=== PATIENT | male | born 1960 | race Caucasian/White ===

== ENCOUNTER 2019-10-17 03:04 | Inpatient (IN) ==
[2019-10-17] MEDS ORDERED: PNEUMOCOCCAL VACCINE (23 VALENT) 0.5 ML VIAL IM ONE (04:53)
[2019-10-17] MEDS ORDERED: INFLUENZA VIRUS VACCINE 0.5 ML SYRINGE IM ONE (04:53)
[2019-10-17] MEDS ORDERED: PROMETHAZINE 25 MG TABLET PO PRN (05:21)
[2019-10-17] MEDS ORDERED: ALBUTEROL 2.5 MG/3 ML NEB RESP TX PRN (05:21)
[2019-10-17] MEDS ORDERED: hydrALAZINE 20 MG/1 ML VIAL IV PRN (05:21)
[2019-10-17] MEDS: PANTOPRAZOLE 40 MG VIAL IV SCH (05:51)
[2019-10-17] MEDS: MORPHINE 4 MG/1 ML VIAL IV PRN ×4 (05:52→21:06)
[2019-10-17] MEDS: SODIUM CHLORIDE 0.9% 1,000 ML IV SCH ×3 (05:54→23:11)
[2019-10-17] MEDS ORDERED: MAGNESIUM SULF RIDER 2 GM in PREMIX 1 EACH IV PRN (05:58)
[2019-10-17] MEDS ORDERED: DEXTROSE 50% 25 GM/50 ML SYRINGE IV PRN (05:58)
[2019-10-17] MEDS ORDERED: GLUCAGON 1 MG VIAL IM PRN (05:58)
[2019-10-17] MEDS ORDERED: MAGNESIUM SULF RIDER 4 GM in PREMIX 1 EACH IV PRN (05:58)
[2019-10-17] MEDS ORDERED: SODIUM CHLORIDE 0.9% 1,000 ML IV ONE (06:15)
[2019-10-17] MEDS: INSULIN LISPRO 100 UNIT/ML SUBCUT SCH ×3 (06:31→17:34)
[2019-10-17] MEDS ORDERED: ALBUTEROL/IPRATROPIUM 3 ML NEB RESP TX SCH (07:00)
[2019-10-17 08:51] LABS: Albumin 3.3 G/DL (3.4-5.0); Bilirubin,Total 0.7 MG/DL (0.2-1.0); Calcium 8.2 MG/DL (8.5-10.1); Osmolality,Calculated 274.8 MOS/KG (273-304); Risk Ratio 2.82; Thyroid Stimulating Hormone 0.608 uIU/ml (0.358-3.74); Total Protein 7.1 G/DL (6.4-8.3); VLDL CHOLESTEROL 15.8 MG/DL
[2019-10-17] MEDS: CLINDAMYCIN INJ 600 MG in PREMIX 1 EACH IV SCH ×4 (08:53→21:07)
[2019-10-17 10:27] LABS: Basophils % 0.1 % (0.0-0.8); Hematocrit 39.8 VOL% (42.0-52.0); Hemoglobin 14.2 GM/DL (14.0-18.0); Immature Granulocytes % 0.6 %; Lymphocytes # 1.2 10*3/uL (1.4-4.0); Lymphocytes % 6.5 % (21.2-54.2); Mean Corpuscular HGB Conc 35.7 GM/DL (32-36); Mean Corpuscular Volume 83.6 FL (87-102); Mean Platelet Volume 11.7 FL (9.6-12.0); Monocytes % 10.7 % (1.7-12.7); Neutrophils % 82.1 % (38.7-73.9); Platelet Count 355 T/CUMM (130-400); Red Blood Count 4.76 MC/CUMM (3.8-5.5); Red Cell Distribution Width 14.7 % (9.3-17.3); White Blood Count 17.8 T/CUMM (4-12)
[2019-10-17 10:36] LABS: PT Patient Result 10.7 SECS (9.6-12.2)
[2019-10-17] MEDS: ALBUTEROL/IPRATROPIUM 3 ML NEB RESP TX SCH ×3 (11:51→20:18)
[2019-10-17 22:40] LABS: Apearance,Urine CLEAR (Clear); Bilirubin,Urine Negative (Negative); Blood, Urine Negative (Negative); Glucose,Urine (UA) Negative (Negative); Ketones,Urine 20 mg/dL (Negative); Nitrite,Urine Negative (Negative); Protein,Urine Negative; RBC,Urine 1 /HPF (0-4); Urine Color Yellow (Yellow); Urine Specific Gravity > 1.060 (1.001-1.035); Urine Urobilinogen < 2.0 EU/DL (0.2-1.0); WBC,Urine 2 /HPF (0-6)
[2019-10-18] MEDS: ALBUTEROL/IPRATROPIUM 3 ML NEB RESP TX SCH ×7 (00:12→23:53)
[2019-10-18] MEDS ORDERED: diphenhydrAMINE 50 MG/1 ML VIAL IV ONE (00:27)
[2019-10-18] MEDS: CLINDAMYCIN INJ 600 MG in PREMIX 1 EACH IV SCH ×4 (03:49→20:35)
[2019-10-18] MEDS: MORPHINE 4 MG/1 ML VIAL IV PRN ×5 (03:49→20:40)
[2019-10-18 04:32] LABS: Basophils % 0.2 % (0.0-0.8); Hematocrit 37.2 VOL% (42.0-52.0); Hemoglobin 13.3 GM/DL (14.0-18.0); Immature Granulocytes % 0.3 %; Immature Granulocytes Absolute 0.05 #; Lymphocytes # 1.5 10*3/uL (1.4-4.0); Lymphocytes % 9.5 % (21.2-54.2); Mean Corpuscular HGB Conc 35.8 GM/DL (32-36); Mean Corpuscular Volume 84.2 FL (87-102); Mean Platelet Volume 11.1 FL (9.6-12.0); Monocytes % 9.6 % (1.7-12.7); Neutrophils % 80.4 % (38.7-73.9); Platelet Count 293 T/CUMM (130-400); Red Blood Count 4.42 MC/CUMM (3.8-5.5); Red Cell Distribution Width 14.9 % (9.3-17.3); White Blood Count 15.3 T/CUMM (4-12)
[2019-10-18 04:52] LABS: Calcium 8.7 MG/DL (8.5-10.1); Osmolality,Calculated 274.7 MOS/KG (273-304)
[2019-10-18] MEDS: INSULIN LISPRO 100 UNIT/ML SUBCUT SCH ×4 (06:11→19:17)
[2019-10-18] MEDS: PANTOPRAZOLE 40 MG VIAL IV SCH (06:18)
[2019-10-18] MEDS: POTASSIUM CHLORIDE RIDER 10 MEQ in PREMIX 1 EACH IV PRN ×3 (06:40→08:39)
[2019-10-18] MEDS: SODIUM CHLORIDE 0.9% 1,000 ML IV SCH (07:00)
[2019-10-18] MEDS: SODIUM CHLOR 0.45% KCL 20 MEQ 20 MEQ/1,000 ML BAG IV SCH ×2 (11:56→23:00)
[2019-10-18] MEDS: FLUCONAZOLE INJ 400 MG in PREMIX 1 EACH IV SCH (11:57)
[2019-10-18] MEDS ORDERED: diphenhydrAMINE CAP 25 MG CAPSULE PO PRN (22:27)
[2019-10-18] MEDS: diphenhydrAMINE 25 MG/10 ML UDCUP PO PRN (23:15)
[2019-10-19] MEDS: INSULIN LISPRO 100 UNIT/ML SUBCUT SCH ×4 (00:28→18:04)
[2019-10-19] MEDS: MORPHINE 4 MG/1 ML VIAL IV PRN ×5 (01:50→22:27)
[2019-10-19] MEDS: CLINDAMYCIN INJ 600 MG in PREMIX 1 EACH IV SCH ×2 (02:05→11:15)
[2019-10-19] MEDS: ALBUTEROL/IPRATROPIUM 3 ML NEB RESP TX SCH ×6 (03:47→23:56)
[2019-10-19] MEDS: PANTOPRAZOLE 40 MG VIAL IV SCH (04:45)
[2019-10-19 05:32] LABS: Basophils % 0.2 % (0.0-0.8); Hematocrit 30.6 VOL% (42.0-52.0); Hemoglobin 10.6 GM/DL (14.0-18.0); Immature Granulocytes % 0.6 %; Immature Granulocytes Absolute 0.07 #; Lymphocytes # 1.4 10*3/uL (1.4-4.0); Lymphocytes % 11.4 % (21.2-54.2); Mean Corpuscular HGB Conc 34.6 GM/DL (32-36); Mean Platelet Volume 10.9 FL (9.6-12.0); Neutrophils % 77.8 % (38.7-73.9); Platelet Count 216 T/CUMM (130-400); Red Blood Count 3.56 MC/CUMM (3.8-5.5); Red Cell Distribution Width 14.9 % (9.3-17.3); White Blood Count 12.5 T/CUMM (4-12)
[2019-10-19 05:57] LABS: Calcium 8.1 MG/DL (8.5-10.1); Osmolality,Calculated 277.4 MOS/KG (273-304)
[2019-10-19] MEDS ORDERED: LACTATED RINGERS 1,000 ML IV SCH (06:30)
[2019-10-19] MEDS: SODIUM CHLOR 0.45% KCL 20 MEQ 20 MEQ/1,000 ML BAG IV SCH ×3 (07:24→23:00)
[2019-10-19] MEDS: POTASSIUM CHLORIDE RIDER 10 MEQ in PREMIX 1 EACH IV PRN ×4 (07:25→17:43)
[2019-10-19] MEDS ORDERED: LIDOCAINE 2% 5 ML VIAL ONE (09:00)
[2019-10-19] MEDS ORDERED: propofoL 200 MG/20 ML VIAL IV ONE (09:00)
[2019-10-19] MEDS ORDERED: ETOMIDATE 20 MG/10 ML VIAL IV ONE (09:00)
[2019-10-19] MEDS: FLUCONAZOLE INJ 400 MG in PREMIX 1 EACH IV SCH (11:51)
[2019-10-19] MEDS: cefTRIAXone 1,000 MG in SYRINGE 1 EACH IV SCH (11:55)
[2019-10-19] MEDS ORDERED: GLUCAGON 1 MG VIAL IM PRN (12:38)
[2019-10-19] MEDS ORDERED: DEXTROSE 50% 25 GM/50 ML VIAL IV PRN (12:38)
[2019-10-19] MEDS: AZITHROMYCIN 250 MG TABLET PO SCH (12:40)
[2019-10-19] MEDS ORDERED: ACETAMINOPHEN 650 MG SUPP RECTAL PRN (21:26)
[2019-10-19] MEDS: diphenhydrAMINE 25 MG/10 ML UDCUP PO PRN (21:36)
[2019-10-19] MEDS: metroNIDAZOLE INJ 500 MG in PREMIX 1 EACH IV SCH (22:32)
[2019-10-20] MEDS: INSULIN LISPRO 100 UNIT/ML SUBCUT SCH ×4 (00:29→18:04)
[2019-10-20] MEDS: ALBUTEROL/IPRATROPIUM 3 ML NEB RESP TX SCH ×5 (03:04→18:05)
[2019-10-20] MEDS: MORPHINE 4 MG/1 ML VIAL IV PRN ×4 (04:33→20:21)
[2019-10-20 04:43] LABS: Basophils % 0.3 % (0.0-0.8); Eosinophils % 0.2 % (0.00-10.9); Hematocrit 29.8 VOL% (42.0-52.0); Hemoglobin 10.4 GM/DL (14.0-18.0); Immature Granulocytes % 0.3 %; Immature Granulocytes Absolute 0.04 #; Lymphocytes # 1.9 10*3/uL (1.4-4.0); Lymphocytes % 15.8 % (21.2-54.2); Mean Corpuscular HGB Conc 34.9 GM/DL (32-36); Mean Corpuscular Volume 83.9 FL (87-102); Mean Platelet Volume 10.9 FL (9.6-12.0); Monocytes % 11.5 % (1.7-12.7); Neutrophils % 71.9 % (38.7-73.9); Platelet Count 206 T/CUMM (130-400); Red Blood Count 3.55 MC/CUMM (3.8-5.5); Red Cell Distribution Width 14.7 % (9.3-17.3); White Blood Count 11.7 T/CUMM (4-12)
[2019-10-20 05:22] LABS: Calcium 8.1 MG/DL (8.5-10.1); Osmolality,Calculated 267.1 MOS/KG (273-304)
[2019-10-20] MEDS: metroNIDAZOLE INJ 500 MG in PREMIX 1 EACH IV SCH (07:55)
[2019-10-20] MEDS ORDERED: metroNIDAZOLE 500 MG TABLET PO SCH (09:00)
[2019-10-20] MEDS: cefTRIAXone 1,000 MG in SYRINGE 1 EACH IV SCH (09:08)
[2019-10-20] MEDS: SODIUM CHLOR 0.45% KCL 20 MEQ 20 MEQ/1,000 ML BAG IV SCH ×3 (09:08→17:13)
[2019-10-20] MEDS: AZITHROMYCIN 250 MG TABLET PO SCH (09:08)
[2019-10-20] MEDS: ONDANSETRON 4 MG/2 ML VIAL IV PRN (12:59)
[2019-10-20] MEDS: diphenhydrAMINE 25 MG/10 ML UDCUP PO PRN (22:05)
[2019-10-21] MEDS: ALBUTEROL/IPRATROPIUM 3 ML NEB RESP TX SCH ×6 (00:24→20:59)
[2019-10-21] MEDS: INSULIN LISPRO 100 UNIT/ML SUBCUT SCH ×4 (00:31→18:15)
[2019-10-21] MEDS: SODIUM CHLOR 0.45% KCL 20 MEQ 20 MEQ/1,000 ML BAG IV SCH ×4 (01:10→21:39)
[2019-10-21] MEDS: MORPHINE 4 MG/1 ML VIAL IV PRN ×5 (04:41→21:57)
[2019-10-21] MEDS: cefTRIAXone 1,000 MG in SYRINGE 1 EACH IV SCH (08:40)
[2019-10-21] MEDS: AZITHROMYCIN 250 MG TABLET PO SCH (11:59)
[2019-10-21] MEDS: diphenhydrAMINE 25 MG/10 ML UDCUP PO PRN (22:00)
[2019-10-22] MEDS: ALBUTEROL/IPRATROPIUM 3 ML NEB RESP TX SCH ×7 (00:30→23:56)
[2019-10-22] MEDS: INSULIN LISPRO 100 UNIT/ML SUBCUT SCH ×4 (02:41→18:33)
[2019-10-22] MEDS: MORPHINE 4 MG/1 ML VIAL IV PRN ×5 (03:00→22:29)
[2019-10-22] MEDS: SODIUM CHLOR 0.45% KCL 20 MEQ 20 MEQ/1,000 ML BAG IV SCH ×4 (05:25→23:45)
[2019-10-22 07:08] LABS: Calcium 8.5 MG/DL (8.5-10.1)
[2019-10-22] MEDS: cefTRIAXone 1,000 MG in SYRINGE 1 EACH IV SCH (08:42)
[2019-10-22] MEDS: PANTOPRAZOLE 40 MG TABLET PO SCH (13:22)
[2019-10-22] MEDS: AZITHROMYCIN 250 MG TABLET PO SCH (13:22)
[2019-10-22] MEDS: LORazepam 2 MG/1 ML VIAL IV PRN (19:53)
[2019-10-23] MEDS: INSULIN LISPRO 100 UNIT/ML SUBCUT SCH ×2 (01:15→06:11)
[2019-10-23] MEDS: LORazepam 2 MG/1 ML VIAL IV PRN ×3 (02:17→21:14)
[2019-10-23] MEDS: ALBUTEROL/IPRATROPIUM 3 ML NEB RESP TX SCH ×6 (03:28→22:38)
[2019-10-23] MEDS: PANTOPRAZOLE 40 MG TABLET PO SCH (07:01)
[2019-10-23] MEDS: AZITHROMYCIN 250 MG TABLET PO SCH (08:40)
[2019-10-23] MEDS: cefTRIAXone 1,000 MG in SYRINGE 1 EACH IV SCH (08:40)
[2019-10-23] MEDS: LACTATED RINGERS 1,000 ML IV SCH ×2 (09:30→11:02)
[2019-10-23] MEDS ORDERED: LIDOCAINE 2% 5 ML VIAL ONE (10:00)
[2019-10-23] MEDS ORDERED: PHENYLEPHRINE 1 MG/10 ML SYRINGE IV ONE (10:00)
[2019-10-23] MEDS ORDERED: propofoL 200 MG/20 ML VIAL IV ONE (10:00)
[2019-10-23] MEDS: MORPHINE 4 MG/1 ML VIAL IV PRN ×3 (13:06→23:20)
[2019-10-23] MEDS: SODIUM CHLOR 0.45% KCL 20 MEQ 20 MEQ/1,000 ML BAG IV SCH ×2 (13:10→19:27)
[2019-10-24] MEDS: ALBUTEROL/IPRATROPIUM 3 ML NEB RESP TX SCH ×2 (02:29→08:56)
[2019-10-24] MEDS: LORazepam 2 MG/1 ML VIAL IV PRN ×3 (03:19→21:45)
[2019-10-24] MEDS: SODIUM CHLOR 0.45% KCL 20 MEQ 20 MEQ/1,000 ML BAG IV SCH ×2 (03:20→07:36)
[2019-10-24] MEDS: MORPHINE 4 MG/1 ML VIAL IV PRN ×4 (05:34→18:31)
[2019-10-24 06:59] LABS: Calcium 9.4 MG/DL (8.5-10.1); Osmolality,Calculated 262.5 MOS/KG (273-304)
[2019-10-24] MEDS: SODIUM CHLOR 0.9% KCL 20 MEQ 20 MEQ/1,000 ML BAG IV SCH ×2 (09:28→18:44)
[2019-10-24] MEDS: PANTOPRAZOLE 40 MG TABLET PO SCH (09:29)
[2019-10-24] MEDS: cefTRIAXone 1,000 MG in SYRINGE 1 EACH IV SCH (09:29)
[2019-10-24] MEDS: ONDANSETRON 4 MG/2 ML VIAL IV PRN (14:21)
[2019-10-25] MEDS: MORPHINE 4 MG/1 ML VIAL IV PRN ×5 (01:32→23:59)
[2019-10-25] MEDS: SODIUM CHLOR 0.9% KCL 20 MEQ 20 MEQ/1,000 ML BAG IV SCH ×3 (04:05→20:45)
[2019-10-25] MEDS: PANTOPRAZOLE 40 MG TABLET PO SCH (06:00)
[2019-10-25] MEDS: cefTRIAXone 1,000 MG in SYRINGE 1 EACH IV SCH (10:05)
[2019-10-25] MEDS: LORazepam 2 MG/1 ML VIAL IV PRN (21:37)
[2019-10-26] MEDS: LORazepam 2 MG/1 ML VIAL IV PRN ×2 (04:50→21:50)
[2019-10-26] MEDS: MORPHINE 4 MG/1 ML VIAL IV PRN ×5 (04:50→22:46)
[2019-10-26] MEDS: PANTOPRAZOLE 40 MG TABLET PO SCH (05:34)
[2019-10-26] MEDS: SODIUM CHLOR 0.9% KCL 20 MEQ 20 MEQ/1,000 ML BAG IV SCH ×4 (06:20→23:42)
[2019-10-26 07:35] LABS: Calcium 8.3 MG/DL (8.5-10.1); Osmolality,Calculated 265.2 MOS/KG (273-304)
[2019-10-26] MEDS: cefTRIAXone 1,000 MG in SYRINGE 1 EACH IV SCH (09:32)
[2019-10-27] MEDS: MORPHINE 4 MG/1 ML VIAL IV PRN ×5 (05:21→22:22)
[2019-10-27] MEDS: PANTOPRAZOLE 40 MG TABLET PO SCH (05:58)
[2019-10-27 06:22] LABS: Basophils # 0.1 10*3/uL (0.0-0.2); Basophils % 1.1 % (0.0-0.8); Eosinophils # 0.1 10*3/uL (0.0-0.87); Eosinophils % 0.9 % (0.00-10.9); Hematocrit 33.2 VOL% (42.0-52.0); Hemoglobin 11.6 GM/DL (14.0-18.0); Immature Granulocytes % 0.2 %; Immature Granulocytes Absolute 0.01 #; Lymphocytes # 2.4 10*3/uL (1.4-4.0); Lymphocytes % 36.5 % (21.2-54.2); Mean Corpuscular HGB Conc 34.9 GM/DL (32-36); Mean Corpuscular Volume 84.3 FL (87-102); Mean Platelet Volume 10.4 FL (9.6-12.0); Monocytes % 8.6 % (1.7-12.7); Neutrophils % 52.7 % (38.7-73.9); Platelet Count 384 T/CUMM (130-400); Red Blood Count 3.94 MC/CUMM (3.8-5.5); Red Cell Distribution Width 14.3 % (9.3-17.3); White Blood Count 6.5 T/CUMM (4-12)
[2019-10-27 06:37] LABS: Calcium 8.1 MG/DL (8.5-10.1); Osmolality,Calculated 272.5 MOS/KG (273-304)
[2019-10-27] MEDS: SODIUM CHLOR 0.9% KCL 20 MEQ 20 MEQ/1,000 ML BAG IV SCH ×3 (06:44→22:25)
[2019-10-27] MEDS: METOCLOPRAMIDE 10 MG/2 ML VIAL IV SCH ×2 (14:12→20:31)
[2019-10-27] MEDS: diphenhydrAMINE 25 MG/10 ML UDCUP PO PRN (20:31)
[2019-10-28] MEDS: METOCLOPRAMIDE 10 MG/2 ML VIAL IV SCH ×4 (03:23→20:45)
[2019-10-28] MEDS: MORPHINE 4 MG/1 ML VIAL IV PRN (05:04)
[2019-10-28] MEDS: PANTOPRAZOLE 40 MG TABLET PO SCH (06:20)
[2019-10-28] MEDS: SODIUM CHLOR 0.9% KCL 20 MEQ 20 MEQ/1,000 ML BAG IV SCH ×3 (06:21→22:21)
[2019-10-28] MEDS: diphenhydrAMINE 25 MG/10 ML UDCUP PO PRN ×2 (06:36→20:45)
[2019-10-28 08:05] LABS: Basophils # 0.1 10*3/uL (0.0-0.2); Basophils % 0.9 % (0.0-0.8); Eosinophils # 0.1 10*3/uL (0.0-0.87); Eosinophils % 1.2 % (0.00-10.9); Hematocrit 36.3 VOL% (42.0-52.0); Hemoglobin 12.3 GM/DL (14.0-18.0); Immature Granulocytes % 0.4 %; Immature Granulocytes Absolute 0.03 #; Lymphocytes # 2.3 10*3/uL (1.4-4.0); Lymphocytes % 32.8 % (21.2-54.2); Mean Corpuscular HGB Conc 33.9 GM/DL (32-36); Mean Corpuscular Volume 87.7 FL (87-102); Mean Platelet Volume 10.4 FL (9.6-12.0); Monocytes % 6.5 % (1.7-12.7); Neutrophils % 58.2 % (38.7-73.9); Platelet Count 398 T/CUMM (130-400); Red Blood Count 4.14 MC/CUMM (3.8-5.5); Red Cell Distribution Width 14.5 % (9.3-17.3); White Blood Count 6.9 T/CUMM (4-12)
[2019-10-28 08:22] LABS: Calcium 8.5 MG/DL (8.5-10.1); Osmolality,Calculated 274.4 MOS/KG (273-304)
[2019-10-28] MEDS: ACETAMINOPHEN 325 MG TABLET PO PRN (09:46)
[2019-10-29] MEDS: METOCLOPRAMIDE 10 MG/2 ML VIAL IV SCH ×3 (02:47→16:18)
[2019-10-29] MEDS: ACETAMINOPHEN 325 MG TABLET PO PRN (04:51)
[2019-10-29] MEDS: PANTOPRAZOLE 40 MG TABLET PO SCH (06:10)
[2019-10-29] MEDS: SODIUM CHLOR 0.9% KCL 20 MEQ 20 MEQ/1,000 ML BAG IV SCH (06:10)
[2019-10-29 06:40] LABS: Basophils # 0.1 10*3/uL (0.0-0.2); Eosinophils # 0.1 10*3/uL (0.0-0.87); Eosinophils % 1.3 % (0.00-10.9); Hematocrit 33.9 VOL% (42.0-52.0); Hemoglobin 11.3 GM/DL (14.0-18.0); Immature Granulocytes % 0.3 %; Immature Granulocytes Absolute 0.02 #; Lymphocytes # 2.4 10*3/uL (1.4-4.0); Mean Corpuscular HGB Conc 33.3 GM/DL (32-36); Mean Corpuscular Volume 87.8 FL (87-102); Mean Platelet Volume 10.4 FL (9.6-12.0); Monocytes % 5.8 % (1.7-12.7); Neutrophils % 56.6 % (38.7-73.9); Platelet Count 395 T/CUMM (130-400); Red Blood Count 3.86 MC/CUMM (3.8-5.5); Red Cell Distribution Width 14.5 % (9.3-17.3); White Blood Count 6.8 T/CUMM (4-12)
[2019-10-29 07:05] LABS: Calcium 8.4 MG/DL (8.5-10.1); Osmolality,Calculated 273.5 MOS/KG (273-304)
[2019-10-29 13:07] VITALS: BP 136/73
== END 2019-10-29 15:46 | disposition home or self-care (01) | DRG 178 ==
LOC: N.CC 04:11 → SUATTDRO 04:11 → N.2E 10-18 10:57
PROVIDERS: ADMIT Internal Medicine; ATTEND Family Medicine

== ENCOUNTER 2019-12-09 11:37 | Inpatient (IN) ==
[2019-12-09] MEDS ORDERED: ACETAMINOPHEN 325 MG TABLET PO PRN (13:54)
[2019-12-09] MEDS ORDERED: AZITHROMYCIN INJ 500 MG in SODIUM CHLORIDE 0.9% 250 ML IV ONE (13:56)
[2019-12-09] MEDS ORDERED: PANTOPRAZOLE 40 MG VIAL IV SCH (14:00)
[2019-12-09 14:17] LABS: ABG Base Excess 4.8 MMOL/L (-2.5-2.5); ABG HCO3 28.7 MMOL/L (20-26); ABG Oxygen Saturation 98.5 % (95-100); ABG PH 7.268 (7.35-7.45); ABG TCO2 31.1 MMOL/L (23-27)
[2019-12-09 14:24] LABS: ABG PCO2 77.2 MM HG (35-48)
[2019-12-09] MEDS ORDERED: AZITHROMYCIN 250 MG TABLET PO ONE (14:30)
[2019-12-09] MEDS ORDERED: MIDAZOLAM 100 MG in SODIUM CHLORIDE 0.9% 80 ML IV PRN (14:30)
[2019-12-09] MEDS ORDERED: GLUCAGON 1 MG VIAL IM PRN (15:10)
[2019-12-09] MEDS ORDERED: DEXTROSE 10% 250 ML BAG IV PRN (15:10)
[2019-12-09 15:18] LABS: Ferritin 41.2 ng/ml (26-388)
[2019-12-09] MEDS: cefTRIAXone 1,000 MG in SYRINGE 1 EACH IV SCH (16:47)
[2019-12-09] MEDS: ENOXAPARIN 40 MG/0.4 ML SYRINGE SUBCUT SCH (16:48)
[2019-12-09] MEDS: predniSONE 20 MG TABLET PER TUBE SCH (16:49)
[2019-12-10 04:05] LABS: ABG Base Excess 6.2 MMOL/L (-2.5-2.5); ABG HCO3 30.1 MMOL/L (20-26); ABG Oxygen Saturation 99.2 % (95-100); ABG PCO2 57.3 MM HG (35-48); ABG PH 7.374 (7.35-7.45); ABG TCO2 29.2 MMOL/L (23-27); Allen Test Positive; Pt O2 Delivery Device Ventilator
[2019-12-10 04:57] LABS: Basophils % 0.1 % (0.0-0.8); Hemoglobin 13.5 GM/DL (14.0-18.0); Immature Granulocytes % 0.4 %; Immature Granulocytes Absolute 0.06 #; Lymphocytes # 0.8 10*3/uL (1.4-4.0); Lymphocytes % 5.9 % (21.2-54.2); Mean Corpuscular HGB Conc 34.6 GM/DL (32-36); Mean Corpuscular Volume 87.8 FL (87-102); Mean Platelet Volume 11.4 FL (9.6-12.0); Monocytes % 3.5 % (1.7-12.7); Neutrophils % 90.1 % (38.7-73.9); Platelet Count 289 T/CUMM (130-400); Red Blood Count 4.44 MC/CUMM (3.8-5.5); Red Cell Distribution Width 14.6 % (9.3-17.3); White Blood Count 13.5 T/CUMM (4-12)
[2019-12-10 05:30] LABS: Albumin 3.1 G/DL (3.4-5.0); Bilirubin,Total 0.8 MG/DL (0.2-1.0); Calcium 8.8 MG/DL (8.5-10.1); Osmolality,Calculated 272.1 MOS/KG (273-304); Total Protein 6.8 G/DL (6.4-8.3)
[2019-12-10] MEDS: AZITHROMYCIN 250 MG TABLET PO SCH (08:00)
[2019-12-10] MEDS: predniSONE 20 MG TABLET PER TUBE SCH (08:00)
[2019-12-10] MEDS: ASPIRIN CHEW 81 MG TABLET PO SCH (08:00)
[2019-12-10] MEDS: PANTOPRAZOLE 40 MG TABLET PO SCH (11:33)
[2019-12-10] MEDS: ENOXAPARIN 40 MG/0.4 ML SYRINGE SUBCUT SCH (13:32)
[2019-12-10] MEDS: cefTRIAXone 1,000 MG in SYRINGE 1 EACH IV SCH (13:33)
[2019-12-11 06:32] LABS: Basophils % 0.4 % (0.0-0.8); Eosinophils % 0.4 % (0.00-10.9); Hematocrit 36.1 VOL% (42.0-52.0); Hemoglobin 12.5 GM/DL (14.0-18.0); Immature Granulocytes % 0.3 %; Immature Granulocytes Absolute 0.03 #; Lymphocytes % 28.8 % (21.2-54.2); Mean Corpuscular HGB Conc 34.6 GM/DL (32-36); Mean Corpuscular Volume 87.2 FL (87-102); Mean Platelet Volume 11.1 FL (9.6-12.0); Neutrophils % 62.1 % (38.7-73.9); Platelet Count 265 T/CUMM (130-400); Red Blood Count 4.14 MC/CUMM (3.8-5.5); Red Cell Distribution Width 14.4 % (9.3-17.3); White Blood Count 10.4 T/CUMM (4-12)
[2019-12-11 06:48] LABS: Calcium 8.3 MG/DL (8.5-10.1); Osmolality,Calculated 265.2 MOS/KG (273-304)
[2019-12-11] MEDS: AZITHROMYCIN 250 MG TABLET PO SCH (10:02)
[2019-12-11] MEDS: PANTOPRAZOLE 40 MG TABLET PO SCH (10:02)
[2019-12-11] MEDS: predniSONE 20 MG TABLET PER TUBE SCH (10:03)
[2019-12-11] MEDS: ASPIRIN CHEW 81 MG TABLET PO SCH (10:03)
[2019-12-11] MEDS: oxyCODONE/ACETAMINOPHEN 5-325 MG TABLET PO PRN ×2 (10:14→20:01)
[2019-12-11] MEDS ORDERED: FUROSEMIDE 20 MG/2 ML VIAL IV ONE (11:00)
[2019-12-11] MEDS: ENOXAPARIN 40 MG/0.4 ML SYRINGE SUBCUT SCH (14:48)
[2019-12-11] MEDS: cefTRIAXone 1,000 MG in SYRINGE 1 EACH IV SCH (14:48)
[2019-12-12] MEDS: oxyCODONE/ACETAMINOPHEN 5-325 MG TABLET PO PRN ×2 (04:02→10:51)
[2019-12-12] MEDS: ASPIRIN CHEW 81 MG TABLET PO SCH (08:23)
[2019-12-12] MEDS: AZITHROMYCIN 250 MG TABLET PO SCH (08:23)
[2019-12-12] MEDS: predniSONE 20 MG TABLET PER TUBE SCH (08:23)
[2019-12-12] MEDS: PANTOPRAZOLE 40 MG TABLET PO SCH (08:23)
[2019-12-12 10:11] VITALS: BP 141/89
== END 2019-12-12 11:51 | disposition home or self-care (01) | DRG 917 ==
LOC: SUATTDRO 13:26 → N.ICU 13:26 → N.2E 12-10 15:48
PROVIDERS: ADMIT Internal Medicine; ATTEND Internal Medicine

== ENCOUNTER 2021-09-14 14:26 | Inpatient (IN) ==
[2021-09-14] MEDS ORDERED: ONDANSETRON 4 MG/2 ML VIAL IV PRN (15:50)
[2021-09-14] MEDS ORDERED: GLUCAGON 1 MG VIAL IM PRN (15:50)
[2021-09-14] MEDS ORDERED: DEXTROSE 10% 25 GM/250 ML BAG IV PRN (15:50)
[2021-09-14] MEDS ORDERED: hydrALAZINE 20 MG/1 ML VIAL IV PRN (16:27)
[2021-09-14] MEDS: SODIUM CHLORIDE 0.9% 1,000 ML IV SCH ×2 (16:30→22:35)
[2021-09-14] MEDS ORDERED: NICOTINE 21 MG/24 HR PATCH TRANSDERM PRN (16:31)
[2021-09-14] MEDS ORDERED: ALBUTEROL/IPRATROPIUM 3 ML NEB RESP TX PRN (16:31)
[2021-09-14] MEDS: MORPHINE 2 MG/1 ML SYRINGE IV PRN (19:49)
[2021-09-15] MEDS: SODIUM CHLORIDE 0.9% 1,000 ML IV SCH ×3 (06:47→15:15)
[2021-09-15 07:12] LABS: Basophils # 0.1 10*3/uL (0.0-0.2); Basophils % 0.4 % (0.0-0.8); Eosinophils % 0.2 % (0.00-10.9); Hematocrit 36.6 VOL% (42.0-52.0); Hemoglobin 12.4 GM/DL (14.0-18.0); Immature Granulocytes % 0.5 %; Immature Granulocytes Absolute 0.07 #; Lymphocytes # 1.4 10*3/uL (1.4-4.0); Lymphocytes % 10.7 % (21.2-54.2); Mean Corpuscular HGB Conc 33.9 GM/DL (32-36); Mean Corpuscular Volume 82.1 FL (87-102); Mean Platelet Volume 10.4 FL (9.6-12.0); Monocytes % 8.6 % (1.7-12.7); Neutrophils % 79.6 % (38.7-73.9); Platelet Count 291 T/CUMM (130-400); Red Blood Count 4.46 MC/CUMM (3.8-5.5); Red Cell Distribution Width 15.5 % (9.3-17.3); White Blood Count 13.5 T/CUMM (4-12)
[2021-09-15] MEDS: MORPHINE 2 MG/1 ML SYRINGE IV PRN ×5 (07:30→21:00)
[2021-09-15 07:33] LABS: Calcium 8.1 MG/DL (8.5-10.1); Osmolality,Calculated 279.3 MOS/KG (273-304); Potassium 3.6 MMOL/L (3.5-5.1)
[2021-09-15] MEDS: PANTOPRAZOLE 40 MG VIAL IV SCH (09:49)
[2021-09-15] MEDS: LACTATED RINGERS 1,000 ML IV SCH (09:50)
[2021-09-15 17:51] LABS: Ferritin 113.8 ng/mL (26-388)
[2021-09-16] MEDS: MORPHINE 2 MG/1 ML SYRINGE IV PRN ×5 (05:19→20:22)
[2021-09-16] MEDS: SODIUM CHLORIDE 0.9% 1,000 ML IV SCH ×2 (06:25→13:39)
[2021-09-16 07:14] LABS: Basophils # 0.1 10*3/uL (0.0-0.2); Basophils % 0.5 % (0.0-0.8); Eosinophils % 0.2 % (0.00-10.9); Hemoglobin 12.6 GM/DL (14.0-18.0); Immature Granulocytes % 0.5 %; Immature Granulocytes Absolute 0.05 #; Lymphocytes # 1.6 10*3/uL (1.4-4.0); Lymphocytes % 14.3 % (21.2-54.2); Mean Corpuscular HGB Conc 34.1 GM/DL (32-36); Mean Corpuscular Volume 82.2 FL (87-102); Mean Platelet Volume 10.9 FL (9.6-12.0); Monocytes % 6.4 % (1.7-12.7); Neutrophils % 78.1 % (38.7-73.9); Platelet Count 286 T/CUMM (130-400); Red Cell Distribution Width 15.6 % (9.3-17.3); White Blood Count 11.1 T/CUMM (4-12)
[2021-09-16 07:33] LABS: Albumin 2.8 G/DL (3.4-5.0); Calcium 8.5 MG/DL (8.5-10.1); Ferritin 156.2 ng/mL (26-388); Osmolality,Calculated 273.7 MOS/KG (273-304); Potassium 3.4 MMOL/L (3.5-5.1); Total Protein 7.2 G/DL (6.4-8.2)
[2021-09-16] MEDS: PANTOPRAZOLE 40 MG VIAL IV SCH (08:27)
[2021-09-16] MEDS: LACTATED RINGERS 1,000 ML IV SCH (08:28)
[2021-09-16 10:44] LABS: Platelet Estimate Normal; Polychromasia Slight; Target Cells 2+
[2021-09-17] MEDS: MORPHINE 2 MG/1 ML SYRINGE IV PRN ×7 (00:03→21:27)
[2021-09-17 05:33] LABS: Basophils # 0.1 10*3/uL (0.0-0.2); Basophils % 0.6 % (0.0-0.8); Calcium 8.2 MG/DL (8.5-10.1); Eosinophils # 0.1 10*3/uL (0.0-0.87); Eosinophils % 0.6 % (0.00-10.9); Hematocrit 33.1 VOL% (42.0-52.0); Hemoglobin 11.5 GM/DL (14.0-18.0); Immature Granulocytes % 0.5 %; Immature Granulocytes Absolute 0.05 #; Lymphocytes # 1.9 10*3/uL (1.4-4.0); Lymphocytes % 18.5 % (21.2-54.2); Mean Corpuscular HGB Conc 34.7 GM/DL (32-36); Mean Corpuscular Volume 81.7 FL (87-102); Mean Platelet Volume 10.6 FL (9.6-12.0); Monocytes % 7.6 % (1.7-12.7); Neutrophils % 72.2 % (38.7-73.9); Osmolality,Calculated 275.5 MOS/KG (273-304); Platelet Count 238 T/CUMM (130-400); Potassium 3.3 MMOL/L (3.5-5.1); Red Blood Count 4.05 MC/CUMM (3.8-5.5); Red Cell Distribution Width 15.1 % (9.3-17.3)
[2021-09-17 05:36] LABS: Ferritin 201.1 ng/mL (26-388)
[2021-09-17] MEDS: SODIUM CHLORIDE 0.9% 1,000 ML IV SCH ×3 (06:44→18:37)
[2021-09-17] MEDS: PANTOPRAZOLE 40 MG VIAL IV SCH (10:01)
[2021-09-17] MEDS: LACTATED RINGERS 1,000 ML IV SCH ×3 (16:10→20:52)
[2021-09-18] MEDS: MORPHINE 2 MG/1 ML SYRINGE IV PRN ×7 (04:15→22:50)
[2021-09-18] MEDS: LACTATED RINGERS 1,000 ML IV SCH ×2 (04:15→14:30)
[2021-09-18 07:00] LABS: Basophils % 0.4 % (0.0-0.8); Eosinophils % 0.4 % (0.00-10.9); Hematocrit 31.2 VOL% (42.0-52.0); Hemoglobin 10.8 GM/DL (14.0-18.0); Immature Granulocytes % 0.3 %; Immature Granulocytes Absolute 0.03 #; Lymphocytes # 1.4 10*3/uL (1.4-4.0); Lymphocytes % 14.8 % (21.2-54.2); Mean Corpuscular HGB Conc 34.6 GM/DL (32-36); Mean Corpuscular Volume 82.1 FL (87-102); Mean Platelet Volume 11.2 FL (9.6-12.0); Monocytes % 9.7 % (1.7-12.7); Neutrophils % 74.4 % (38.7-73.9); Platelet Count 230 T/CUMM (130-400); White Blood Count 9.7 T/CUMM (4-12)
[2021-09-18 07:22] LABS: Albumin 2.1 G/DL (3.4-5.0); Bilirubin,Total 0.9 MG/DL (0.20-1.00); Calcium 8.3 MG/DL (8.5-10.1); Osmolality,Calculated 272.7 MOS/KG (273-304); Potassium 3.1 MMOL/L (3.5-5.1); Total Protein 6.1 G/DL (6.4-8.2)
[2021-09-18] MEDS: PANTOPRAZOLE 40 MG VIAL IV SCH (08:14)
[2021-09-18] MEDS ORDERED: MAGNESIUM SULF RIDER 2 GM/50 ML PREMIX IV ONE (09:30)
[2021-09-18] MEDS ORDERED: POTASSIUM CHLORIDE RIDER 10 MEQ/100 ML PREMIX IV PRN (11:01)
[2021-09-18] MEDS: POTASSIUM CHLORIDE RIDER 10 MEQ/100 ML PREMIX IV PRN ×4 (13:10→22:52)
[2021-09-19] MEDS: MORPHINE 2 MG/1 ML SYRINGE IV PRN ×7 (02:14→23:02)
[2021-09-19] MEDS: LACTATED RINGERS 1,000 ML IV SCH ×3 (05:06→12:09)
[2021-09-19 05:40] LABS: Basophils % 0.4 % (0.0-0.8); Eosinophils # 0.1 10*3/uL (0.0-0.87); Eosinophils % 1.6 % (0.00-10.9); Hematocrit 32.4 VOL% (42.0-52.0); Hemoglobin 11.2 GM/DL (14.0-18.0); Immature Granulocytes % 0.4 %; Immature Granulocytes Absolute 0.03 #; Lymphocytes # 1.5 10*3/uL (1.4-4.0); Lymphocytes % 19.1 % (21.2-54.2); Mean Corpuscular HGB Conc 34.6 GM/DL (32-36); Mean Corpuscular Volume 81.6 FL (87-102); Mean Platelet Volume 10.7 FL (9.6-12.0); Monocytes % 9.9 % (1.7-12.7); Neutrophils % 68.6 % (38.7-73.9); Platelet Count 243 T/CUMM (130-400); Red Blood Count 3.97 MC/CUMM (3.8-5.5); Red Cell Distribution Width 14.8 % (9.3-17.3); White Blood Count 8.1 T/CUMM (4-12)
[2021-09-19 06:01] LABS: Eosinophils 2 % (0-10); Lymphocytes 17 % (20-55); Segmented Neutrophils 78 % (50-85); Total Cells Counted 100
[2021-09-19 06:02] LABS: Hypochromia Slight; Microcytosis Slight; Platelet Estimate Adequate
[2021-09-19 06:28] LABS: Calcium 8.4 MG/DL (8.5-10.1); Osmolality,Calculated 270.7 MOS/KG (273-304); Potassium 3.4 MMOL/L (3.5-5.1)
[2021-09-19] MEDS: PANTOPRAZOLE 40 MG VIAL IV SCH (08:28)
[2021-09-19] MEDS: POTASSIUM CHLORIDE RIDER 10 MEQ/100 ML PREMIX IV PRN ×3 (08:29→18:55)
[2021-09-20] MEDS: MORPHINE 2 MG/1 ML SYRINGE IV PRN ×3 (04:44→11:38)
[2021-09-20 06:46] LABS: Basophils % 0.3 % (0.0-0.8); Eosinophils # 0.2 10*3/uL (0.0-0.87); Eosinophils % 2.5 % (0.00-10.9); Hematocrit 33.5 VOL% (42.0-52.0); Immature Granulocytes % 0.4 %; Immature Granulocytes Absolute 0.03 #; Lymphocytes # 1.6 10*3/uL (1.4-4.0); Lymphocytes % 23.6 % (21.2-54.2); Mean Corpuscular HGB Conc 35.8 GM/DL (32-36); Mean Corpuscular Volume 81.5 FL (87-102); Mean Platelet Volume 11.5 FL (9.6-12.0); Monocytes % 10.9 % (1.7-12.7); Neutrophils % 62.3 % (38.7-73.9); Platelet Count 258 T/CUMM (130-400); Red Blood Count 4.11 MC/CUMM (3.8-5.5); Red Cell Distribution Width 14.7 % (9.3-17.3); White Blood Count 6.9 T/CUMM (4-12)
[2021-09-20 07:01] LABS: Calcium 8.7 MG/DL (8.5-10.1); Osmolality,Calculated 266.1 MOS/KG (273-304); Potassium 3.3 MMOL/L (3.5-5.1)
[2021-09-20 07:06] LABS: Eosinophils 3 % (0-10); Hypochromia Slight; Lymphocytes 28 % (20-55); Microcytosis Slight; Platelet Estimate Adequate; Segmented Neutrophils 60 % (50-85); Total Cells Counted 100
[2021-09-20] MEDS: PANTOPRAZOLE 40 MG VIAL IV SCH (08:07)
[2021-09-20] MEDS ORDERED: POTASSIUM CHLORIDE 20 MEQ TABLET PO PRN (08:23)
[2021-09-20] MEDS ORDERED: MAGNESIUM SULF RIDER 2 GM/50 ML PREMIX IV ONE (08:30)
[2021-09-20 11:52] VITALS: BP 139/70
[2021-09-20] MEDS: LACTATED RINGERS 1,000 ML IV SCH (12:57)
== END 2021-09-20 15:58 | disposition home or self-care (01) | DRG 391 ==
LOC: SUATTDRO → N.ED 14:26 → N.3E 15:48 → SUATTDRO 15:48 → N.3E 18:45
PROVIDERS: ADMIT Internal Medicine; ATTEND Internal Medicine

== ENCOUNTER 2022-06-12 19:04 | Inpatient (IN) ==
[2022-06-12] MEDS ORDERED: ALBUTEROL/IPRATROPIUM 3 ML NEB RESP TX STA (19:26)
[2022-06-12] MEDS ORDERED: methylPREDNISolone SOD SUC 125 MG/2 ML VIAL IV STA (19:26)
[2022-06-12] MEDS ORDERED: SODIUM CHLORIDE 0.9% 1,000 ML IV STA (19:27)
[2022-06-12 20:09] LABS: Basophils % 0.2 % (0.0-0.8); Eosinophils % 0.2 % (0.00-10.9); Hematocrit 26.6 VOL% (42.0-52.0); Hemoglobin 9.1 GM/DL (14.0-18.0); Immature Granulocytes % 1.1 %; Immature Granulocytes Absolute 0.11 #; Lymphocytes # 1.1 10*3/uL (1.4-4.0); Lymphocytes % 11.1 % (21.2-54.2); Mean Corpuscular HGB Conc 34.2 GM/DL (32-36); Mean Corpuscular Volume 81.6 FL (87-102); Mean Platelet Volume 10.2 FL (9.6-12.0); Monocytes # 1.7 10*3/uL (0.11-0.8); Monocytes % 16.7 % (1.7-12.7); Neutrophils % 70.7 % (38.7-73.9); Platelet Count 284 T/CUMM (130-400); Red Blood Count 3.26 MC/CUMM (3.8-5.5); White Blood Count 9.9 T/CUMM (4-12)
[2022-06-12 20:35] LABS: Albumin 2.2 G/DL (3.4-5.0); Bilirubin,Total 0.5 MG/DL (0.20-1.00); Calcium 8.3 MG/DL (8.5-10.1); Potassium 3.5 MMOL/L (3.5-5.1); Total Protein 6.5 G/DL (6.4-8.2)
[2022-06-12 20:51] LABS: Band Neutrophils 1 % (0-10); Lymphocytes 8 % (20-55); Platelet Estimate Normal; Total Cells Counted 100
[2022-06-12] MEDS ORDERED: PIPERACILLIN/TAZOBACTAM 3,375 MG in SODIUM CHLORIDE 0.9% 100 ML IV STA (21:10)
[2022-06-12] MEDS ORDERED: hydrALAZINE 20 MG/1 ML VIAL IV PRN (22:23)
[2022-06-12] MEDS ORDERED: ONDANSETRON 4 MG/2 ML VIAL IV PRN (22:23)
[2022-06-12] MEDS ORDERED: diphenhydrAMINE CAP 25 MG CAPSULE PO PRN (22:23)
[2022-06-12] MEDS ORDERED: guaiFENesin/DM ER 600-30 MG TABLET PO PRN (22:23)
[2022-06-12] MEDS ORDERED: ZALEPLON 5 MG CAPSULE PO PRN (22:23)
[2022-06-12] MEDS ORDERED: ACETAMINOPHEN 325 MG TABLET PO PRN (22:23)
[2022-06-12] MEDS ORDERED: NICOTINE 21 MG/24 HR PATCH TRANSDERM PRN (22:23)
[2022-06-13] MEDS: methylPREDNISolone SOD SUC 40 MG/1 ML VIAL IV SCH ×3 (01:40→16:37)
[2022-06-13] MEDS: VANCOMYCIN INJ 1,250 MG in SODIUM CHLORIDE 0.9% 250 ML IV SCH ×2 (01:44→18:22)
[2022-06-13] MEDS: ALBUTEROL/IPRATROPIUM 3 ML NEB RESP TX SCH ×4 (01:45→19:04)
[2022-06-13] MEDS: PIPERACILLIN/TAZOBACTAM 3,375 MG in SODIUM CHLORIDE 0.9% 100 ML IV SCH ×3 (05:00→20:56)
[2022-06-13 05:31] LABS: Hematocrit 26.3 VOL% (42.0-52.0); Hemoglobin 9.1 GM/DL (14.0-18.0); Immature Granulocytes % 0.7 %; Immature Granulocytes Absolute 0.04 #; Lymphocytes # 0.4 10*3/uL (1.4-4.0); Lymphocytes % 6.2 % (21.2-54.2); Mean Corpuscular HGB Conc 34.6 GM/DL (32-36); Mean Corpuscular Volume 82.2 FL (87-102); Mean Platelet Volume 10.1 FL (9.6-12.0); Monocytes # 0.1 10*3/uL (0.11-0.8); Monocytes % 1.8 % (1.7-12.7); Neutrophils % 91.3 % (38.7-73.9); Platelet Count 311 T/CUMM (130-400); Red Cell Distribution Width 14.8 % (9.3-17.3); White Blood Count 6.1 T/CUMM (4-12)
[2022-06-13 05:55] LABS: Calcium 8.3 MG/DL (8.5-10.1); Hypochromia Slight; Lymphocytes 5 % (20-55); Microcytosis Slight; Osmolality,Calculated 281.8 MOS/KG (273-304); Platelet Estimate Adequate; Potassium 3.7 MMOL/L (3.5-5.1); Total Cells Counted 100
[2022-06-13] MEDS: INSULIN LISPRO 100 UNIT/ML SUBCUT SCH ×4 (08:22→21:05)
[2022-06-13] MEDS: PANTOPRAZOLE 40 MG TABLET PO SCH (09:37)
[2022-06-13] MEDS: VERAPAMIL SR 120 MG TABLET PO SCH (09:37)
[2022-06-13] MEDS ORDERED: ENOXAPARIN 40 MG/0.4 ML SYRINGE SUBCUT SCH (14:00)
[2022-06-13] MEDS: BUDESONIDE/FORMOTEROL 160-4.5 INHALER 6 GM INH SCH (20:57)
[2022-06-14] MEDS: ALBUTEROL/IPRATROPIUM 3 ML NEB RESP TX SCH ×4 (00:08→19:14)
[2022-06-14] MEDS: methylPREDNISolone SOD SUC 40 MG/1 ML VIAL IV SCH ×3 (01:01→18:38)
[2022-06-14 04:37] LABS: Basophils % 0.1 % (0.0-0.8); Hematocrit 27.6 VOL% (42.0-52.0); Hemoglobin 9.6 GM/DL (14.0-18.0); Immature Granulocytes % 0.4 %; Immature Granulocytes Absolute 0.03 #; Lymphocytes # 0.6 10*3/uL (1.4-4.0); Lymphocytes % 7.2 % (21.2-54.2); Mean Corpuscular HGB Conc 34.8 GM/DL (32-36); Mean Corpuscular Volume 82.1 FL (87-102); Mean Platelet Volume 10.4 FL (9.6-12.0); Monocytes # 0.2 10*3/uL (0.11-0.8); Monocytes % 2.8 % (1.7-12.7); Neutrophils % 89.5 % (38.7-73.9); Platelet Count 442 T/CUMM (130-400); Red Blood Count 3.36 MC/CUMM (3.8-5.5); Red Cell Distribution Width 14.9 % (9.3-17.3); White Blood Count 7.8 T/CUMM (4-12)
[2022-06-14 05:01] LABS: Calcium 9.1 MG/DL (8.5-10.1); Osmolality,Calculated 271.2 MOS/KG (273-304); Potassium 4.6 MMOL/L (3.5-5.1)
[2022-06-14] MEDS: PIPERACILLIN/TAZOBACTAM 3,375 MG in SODIUM CHLORIDE 0.9% 100 ML IV SCH ×2 (05:16→17:21)
[2022-06-14] MEDS ORDERED: GLYCOPYRROLATE 0.4 MG/2 ML VIAL IM ONE (07:00)
[2022-06-14] MEDS ORDERED: MEPERIDINE 50 MG/1 ML VIAL IM ONE (07:00)
[2022-06-14] MEDS ORDERED: PROMETHAZINE 25 MG/1 ML VIAL IM ONE (07:00)
[2022-06-14] MEDS ORDERED: LIDOCAINE 2% 20 ML VIAL RESP TX ONE (07:30)
[2022-06-14] MEDS ORDERED: LIDOCAINE 2% VISCOUS 100 ML BOTTLE SWISH/SPIT ONE (07:30)
[2022-06-14] MEDS ORDERED: LIDOCAINE 1% 20 ML VIAL MISC INJ ONE (07:30)
[2022-06-14] MEDS ORDERED: MIDAZOLAM 2 MG/2 ML VIAL IV ONE (07:30)
[2022-06-14] MEDS: INSULIN LISPRO 100 UNIT/ML SUBCUT SCH ×4 (08:02→20:15)
[2022-06-14] MEDS: VERAPAMIL SR 120 MG TABLET PO SCH (10:34)
[2022-06-14] MEDS: PANTOPRAZOLE 40 MG TABLET PO SCH (10:34)
[2022-06-14] MEDS: BUDESONIDE/FORMOTEROL 160-4.5 INHALER 6 GM INH SCH ×2 (10:35→20:54)
[2022-06-14] MEDS: ENOXAPARIN 40 MG/0.4 ML SYRINGE SUBCUT SCH (12:56)
[2022-06-15] MEDS: ALBUTEROL/IPRATROPIUM 3 ML NEB RESP TX SCH ×5 (00:58→19:14)
[2022-06-15] MEDS: methylPREDNISolone SOD SUC 40 MG/1 ML VIAL IV SCH ×2 (01:17→11:22)
[2022-06-15] MEDS: PIPERACILLIN/TAZOBACTAM 3,375 MG in SODIUM CHLORIDE 0.9% 100 ML IV SCH ×2 (01:17→11:22)
[2022-06-15 06:19] LABS: Basophils % 0.1 % (0.0-0.8); Hematocrit 27.1 VOL% (42.0-52.0); Hemoglobin 9.5 GM/DL (14.0-18.0); Immature Granulocytes % 0.4 %; Immature Granulocytes Absolute 0.03 #; Lymphocytes # 0.6 10*3/uL (1.4-4.0); Lymphocytes % 6.8 % (21.2-54.2); Mean Corpuscular HGB Conc 35.1 GM/DL (32-36); Mean Corpuscular Volume 81.9 FL (87-102); Mean Platelet Volume 9.8 FL (9.6-12.0); Monocytes # 0.3 10*3/uL (0.11-0.8); Monocytes % 3.2 % (1.7-12.7); Neutrophils % 89.5 % (38.7-73.9); Platelet Count 477 T/CUMM (130-400); Red Blood Count 3.31 MC/CUMM (3.8-5.5); Red Cell Distribution Width 14.9 % (9.3-17.3)
[2022-06-15 06:42] LABS: Calcium 8.5 MG/DL (8.5-10.1); Osmolality,Calculated 277.7 MOS/KG (273-304); Potassium 4.5 MMOL/L (3.5-5.1)
[2022-06-15] MEDS: VERAPAMIL SR 120 MG TABLET PO SCH (08:24)
[2022-06-15] MEDS: PANTOPRAZOLE 40 MG TABLET PO SCH (08:25)
[2022-06-15] MEDS: BUDESONIDE/FORMOTEROL 160-4.5 INHALER 6 GM INH SCH ×2 (08:25→21:14)
[2022-06-15] MEDS: INSULIN LISPRO 100 UNIT/ML SUBCUT SCH ×4 (08:32→21:28)
[2022-06-15] MEDS: ENOXAPARIN 40 MG/0.4 ML SYRINGE SUBCUT SCH (12:42)
[2022-06-15] MEDS: predniSONE 20 MG TABLET PO SCH (21:15)
[2022-06-16] MEDS: ALBUTEROL/IPRATROPIUM 3 ML NEB RESP TX SCH ×2 (00:07→07:35)
[2022-06-16] MEDS: PIPERACILLIN/TAZOBACTAM 3,375 MG in SODIUM CHLORIDE 0.9% 100 ML IV SCH ×2 (01:56→08:22)
[2022-06-16] MEDS: PANTOPRAZOLE 40 MG TABLET PO SCH (08:24)
[2022-06-16] MEDS: predniSONE 20 MG TABLET PO SCH (08:27)
[2022-06-16] MEDS: BUDESONIDE/FORMOTEROL 160-4.5 INHALER 6 GM INH SCH (08:29)
[2022-06-16] MEDS: INSULIN LISPRO 100 UNIT/ML SUBCUT SCH ×2 (08:50→11:30)
[2022-06-16] MEDS: VERAPAMIL SR 120 MG TABLET PO SCH (08:51)
[2022-06-16] MEDS: ENOXAPARIN 40 MG/0.4 ML SYRINGE SUBCUT SCH (11:40)
[2022-06-16 16:00] VITALS: BP 130/70
== END 2022-06-16 12:44 | disposition home or self-care (01) | DRG 190 ==
LOC: EDBD → EDUNIT# → N.ED 19:04 → N.TELES 22:23
PROVIDERS: ADMIT Emergency Medicine; ATTEND Emergency Medicine

== ENCOUNTER 2022-09-27 23:33 | Inpatient (IN) ==
[2022-09-28] MEDS ORDERED: BENZTROPINE 2 MG/2 ML AMP IV ONE (00:29)
[2022-09-28 00:48] LABS: Albumin 3.7 G/DL (3.4-5.0); Bilirubin,Total 0.6 MG/DL (0.20-1.00); Calcium 8.7 MG/DL (8.5-10.1); Osmolality,Calculated 271.2 MOS/KG (273-304); Potassium 4.7 MMOL/L (3.5-5.1); Total Protein 7.3 G/DL (6.4-8.2)
[2022-09-28 00:59] LABS: Basophils % 0.4 % (0.0-0.8); Eosinophils % 0.1 % (0.00-10.9); Hematocrit 34.7 VOL% (42.0-52.0); Hemoglobin 11.6 GM/DL (14.0-18.0); Immature Granulocytes % 0.1 %; Immature Granulocytes Absolute 0.01 #; Lymphocytes # 0.9 10*3/uL (1.4-4.0); Lymphocytes % 11.7 % (21.2-54.2); Mean Corpuscular HGB Conc 33.4 GM/DL (32-36); Mean Corpuscular Volume 78.7 FL (87-102); Mean Platelet Volume 10.1 FL (9.6-12.0); Monocytes # 0.3 10*3/uL (0.11-0.8); Monocytes % 3.8 % (1.7-12.7); Neutrophils % 83.9 % (38.7-73.9); Platelet Count 486 T/CUMM (130-400); Red Blood Count 4.41 MC/CUMM (3.8-5.5); Red Cell Distribution Width 15.5 % (9.3-17.3)
[2022-09-28] MEDS ORDERED: SODIUM CHLORIDE 0.9% 1,000 ML IV STA (01:04)
[2022-09-28] MEDS ORDERED: diphenhydrAMINE 50 MG/1 ML VIAL IV STA (01:14)
[2022-09-28 01:17] LABS: Bacteria,Urine Occasional /HPF (Few); Hyaline Casts,Urine 17 /LPF (0-3); Mucus,Urine Moderate /LPF (Occasional); RBC,Urine 1 /HPF (0-4); Squamous Epithelial Cell,Urine Occasional /HPF (0-10)
[2022-09-28 01:27] LABS: Bilirubin,Urine Negative (Negative); Blood, Urine Negative (Negative); Glucose,Urine (UA) Negative (Negative); Ketones,Urine Negative (Negative); Nitrite,Urine Negative (Negative); Protein,Urine 100 mg/dL (Negative); Urine Appearance Clear (Clear); Urine Color Yellow (Yellow); Urine pH 5.5 (4.5-8.0)
[2022-09-28 01:28] LABS: Urine Urobilinogen 0.2 eU/dL (<2.0)
[2022-09-28 01:53] LABS: Barbiturates Screen,Urine Negative (Negative); Benzodiazepines Screen,Urine Negative (Negative); Cannabinoid Screen,Urine Positive (Negative); Opiate Screen,Urine Positive (Negative); Phencyclidine Screen,Urine Negative (Negative)
[2022-09-28] MEDS ORDERED: PANTOPRAZOLE 40 MG VIAL IV STA (02:51)
[2022-09-28] MEDS ORDERED: fentaNYL 100 MCG/2 ML VIAL ONE (03:02)
[2022-09-28] MEDS ORDERED: PIPERACILLIN/TAZOBACTAM 3,375 MG VIAL IV ONE (03:39)
[2022-09-28] MEDS ORDERED: ROCURONIUM 50 MG/5 ML VIAL IV ONE (03:50)
[2022-09-28] MEDS ORDERED: LACTATED RINGERS 1,000 ML IV ONE (03:50)
[2022-09-28] MEDS ORDERED: LIDOCAINE 2% 5 ML VIAL ONE (03:50)
[2022-09-28] MEDS ORDERED: SEVOFLURANE 1 UNIT/15 MINUTE INH ONE (03:50)
[2022-09-28] MEDS ORDERED: SUCCINYLCHOLINE 200 MG/10 ML VIAL ONE (03:50)
[2022-09-28] MEDS ORDERED: propofoL 200 MG/20 ML VIAL IV ONE (03:50)
[2022-09-28] MEDS ORDERED: HYDROmorphone 1 MG/1 ML SYRINGE ONE (04:03)
[2022-09-28] MEDS ORDERED: ACETAMINOPHEN 325 MG TABLET PO PRN (04:35)
[2022-09-28] MEDS ORDERED: ONDANSETRON 4 MG/2 ML VIAL IV PRN (04:35)
[2022-09-28] MEDS: LACTATED RINGERS 1,000 ML IV SCH ×5 (05:15→21:12)
[2022-09-28 05:38] LABS: Arterial Base Excess iSTAT 0 MMOL/L (-2.5-2.5); Arterial Bicarbonate iSTAT 29.1 MMOL/L (20-26); Arterial O2 Saturation iSTAT 100 % (95-100); Arterial PCO2 iSTAT 71 MM HG (35-48); Arterial PO2 iSTAT 529 MM HG (80-95); Arterial Total CO2 iSTAT 31 MMO/L (23-27); Arterial pH iSTAT 7.219 (7.35-7.45)
[2022-09-28] MEDS: PANTOPRAZOLE 40 MG VIAL IV SCH (08:23)
[2022-09-28] MEDS ORDERED: dexmedeTOMIDine DRIP 400 MCG/100 ML PREMIX IV PRN (10:10)
[2022-09-28] MEDS: MORPHINE 2 MG/1 ML SYRINGE IV PRN ×5 (10:12→22:00)
[2022-09-28 11:20] LABS: Arterial Base Excess iSTAT -1 MMOL/L (-2.5-2.5); Arterial Bicarbonate iSTAT 28.5 MMOL/L (20-26); Arterial O2 Saturation iSTAT 99 % (95-100); Arterial PCO2 iSTAT 75 MM HG (35-48); Arterial PO2 iSTAT 176 MM HG (80-95); Arterial Total CO2 iSTAT 31 MMO/L (23-27)
[2022-09-28] MEDS: PIPERACILLIN/TAZOBACTAM 3,375 MG in SODIUM CHLORIDE 0.9% 100 ML IV SCH ×2 (11:40→20:46)
[2022-09-28 12:28] LABS: Arterial Base Excess iSTAT 0 MMOL/L (-2.5-2.5); Arterial Bicarbonate iSTAT 26.7 MMOL/L (20-26); Arterial O2 Saturation iSTAT 96 % (95-100); Arterial PCO2 iSTAT 53 MM HG (35-48); Arterial PO2 iSTAT 92 MM HG (80-95); Arterial Total CO2 iSTAT 28 MMO/L (23-27); Arterial pH iSTAT 7.314 (7.35-7.45)
[2022-09-28] MEDS: ALBUTEROL/IPRATROPIUM 3 ML NEB RESP TX SCH ×2 (13:47→19:11)
[2022-09-28] MEDS ORDERED: DEXTROSE 50% 25 GM/50 ML SYRINGE IV ONE ×2 (17:25→18:00)
[2022-09-29] MEDS: ALBUTEROL/IPRATROPIUM 3 ML NEB RESP TX SCH ×4 (01:10→19:14)
[2022-09-29] MEDS: LACTATED RINGERS 1,000 ML IV SCH ×5 (02:08→19:25)
[2022-09-29] MEDS: MORPHINE 2 MG/1 ML SYRINGE IV PRN ×7 (03:20→20:38)
[2022-09-29] MEDS: PIPERACILLIN/TAZOBACTAM 3,375 MG in SODIUM CHLORIDE 0.9% 100 ML IV SCH ×3 (03:24→20:52)
[2022-09-29 04:51] LABS: Basophils % 0.2 % (0.0-0.8); Hematocrit 27.2 VOL% (42.0-52.0); Hemoglobin 9.4 GM/DL (14.0-18.0); Immature Granulocytes % 0.6 %; Lymphocytes % 6.2 % (21.2-54.2); Mean Corpuscular HGB Conc 34.6 GM/DL (32-36); Mean Corpuscular Volume 77.5 FL (87-102); Mean Platelet Volume 10.2 FL (9.6-12.0); Monocytes # 1.2 10*3/uL (0.11-0.8); Monocytes % 7.4 % (1.7-12.7); Neutrophils % 85.6 % (38.7-73.9); Platelet Count 298 T/CUMM (130-400); Red Blood Count 3.51 MC/CUMM (3.8-5.5); White Blood Count 16.42 T/CUMM (4-12)
[2022-09-29 04:59] LABS: Calcium 7.8 MG/DL (8.5-10.1); Osmolality,Calculated 279.5 MOS/KG (273-304); Potassium 4.2 MMOL/L (3.5-5.1)
[2022-09-29 05:35] LABS: Anisocytosis 2+; Platelet Estimate Normal; Target Cells 1+
[2022-09-29] MEDS: PANTOPRAZOLE 40 MG VIAL IV SCH (08:08)
[2022-09-29] MEDS ORDERED: DEXTROSE 10% 250 ML BAG IV PRN (17:26)
[2022-09-29] MEDS ORDERED: DEXTROSE 50% 25 GM/50 ML SYRINGE IV ONE ×2 (17:26→18:00)
[2022-09-30] MEDS: MORPHINE 2 MG/1 ML SYRINGE IV PRN ×6 (00:23→19:28)
[2022-09-30] MEDS: ALBUTEROL/IPRATROPIUM 3 ML NEB RESP TX SCH ×2 (00:37→07:17)
[2022-09-30] MEDS: PIPERACILLIN/TAZOBACTAM 3,375 MG in SODIUM CHLORIDE 0.9% 100 ML IV SCH ×3 (03:27→21:23)
[2022-09-30] MEDS: LACTATED RINGERS 1,000 ML IV SCH ×2 (04:17→12:49)
[2022-09-30] MEDS: PANTOPRAZOLE 40 MG VIAL IV SCH (08:08)
[2022-09-30] MEDS ORDERED: ALBUTEROL/IPRATROPIUM 3 ML NEB RESP TX PRN (08:21)
[2022-10-01] MEDS: MORPHINE 2 MG/1 ML SYRINGE IV PRN ×3 (02:52→17:26)
[2022-10-01 05:57] LABS: Basophils # 0.1 10*3/uL (0.0-0.2); Basophils % 0.3 % (0.0-0.8); Eosinophils % 0.1 % (0.00-10.9); Hematocrit 27.5 VOL% (42.0-52.0); Hemoglobin 9.6 GM/DL (14.0-18.0); Immature Granulocytes % 0.5 %; Immature Granulocytes Absolute 0.08 #; Lymphocytes # 0.8 10*3/uL (1.4-4.0); Lymphocytes % 5.1 % (21.2-54.2); Mean Corpuscular HGB Conc 34.9 GM/DL (32-36); Mean Corpuscular Volume 76.8 FL (87-102); Mean Platelet Volume 10.4 FL (9.6-12.0); Monocytes # 1.4 10*3/uL (0.11-0.8); Monocytes % 8.5 % (1.7-12.7); Neutrophils % 85.5 % (38.7-73.9); Platelet Count 269 T/CUMM (130-400); Red Blood Count 3.58 MC/CUMM (3.8-5.5); Red Cell Distribution Width 15.2 % (9.3-17.3); White Blood Count 16.21 T/CUMM (4-12)
[2022-10-01 06:17] LABS: Calcium 8.5 MG/DL (8.5-10.1); Osmolality,Calculated 277.5 MOS/KG (273-304); Potassium 3.6 MMOL/L (3.5-5.1)
[2022-10-01] MEDS: LACTATED RINGERS 1,000 ML IV SCH ×3 (09:48→17:26)
[2022-10-01] MEDS: PANTOPRAZOLE 40 MG VIAL IV SCH (12:29)
[2022-10-01] MEDS: PIPERACILLIN/TAZOBACTAM 3,375 MG in SODIUM CHLORIDE 0.9% 100 ML IV SCH ×3 (12:29→20:39)
[2022-10-02] MEDS: PIPERACILLIN/TAZOBACTAM 3,375 MG in SODIUM CHLORIDE 0.9% 100 ML IV SCH ×3 (03:59→21:23)
[2022-10-02 05:08] LABS: Basophils % 0.3 % (0.0-0.8); Eosinophils # 0.1 10*3/uL (0.0-0.87); Eosinophils % 0.4 % (0.00-10.9); Hematocrit 32.1 VOL% (42.0-52.0); Immature Granulocytes % 0.4 %; Immature Granulocytes Absolute 0.07 #; Lymphocytes # 0.8 10*3/uL (1.4-4.0); Lymphocytes % 4.9 % (21.2-54.2); Mean Corpuscular HGB Conc 34.3 GM/DL (32-36); Mean Corpuscular Volume 76.6 FL (87-102); Mean Platelet Volume 10.5 FL (9.6-12.0); Monocytes # 1.8 10*3/uL (0.11-0.8); Monocytes % 11.1 % (1.7-12.7); Neutrophils % 82.9 % (38.7-73.9); Platelet Count 333 T/CUMM (130-400); Red Blood Count 4.19 MC/CUMM (3.8-5.5); White Blood Count 15.89 T/CUMM (4-12)
[2022-10-02 05:42] LABS: Calcium 8.7 MG/DL (8.5-10.1); Potassium 3.2 MMOL/L (3.5-5.1)
[2022-10-02 05:46] LABS: Lymphocytes 5 % (20-55); Platelet Estimate Adequate; Total Cells Counted 100
[2022-10-02 05:47] LABS: Hypochromia Slight; Target Cells Slight
[2022-10-02] MEDS: MORPHINE 2 MG/1 ML SYRINGE IV PRN (09:39)
[2022-10-02] MEDS: PANTOPRAZOLE 40 MG VIAL IV SCH (09:39)
[2022-10-02] MEDS: LACTATED RINGERS 1,000 ML IV SCH ×2 (09:43→10:03)
[2022-10-02] MEDS ORDERED: ALBUTEROL 2.5 MG/3 ML NEB RESP TX PRN (10:13)
[2022-10-02] MEDS ORDERED: POTASSIUM CHLORIDE 20 MEQ TABLET PO ONE (12:45)
[2022-10-02] MEDS ORDERED: MAGNESIUM SULF RIDER 2 GM/50 ML PREMIX IV ONE (12:45)
[2022-10-02] MEDS: BUDESONIDE 0.5 MG/2 ML NEB RESP TX SCH (20:07)
[2022-10-03] MEDS: PIPERACILLIN/TAZOBACTAM 3,375 MG in SODIUM CHLORIDE 0.9% 100 ML IV SCH ×2 (04:04→11:53)
[2022-10-03 07:26] LABS: Basophils % 0.3 % (0.0-0.8); Eosinophils # 0.1 10*3/uL (0.0-0.87); Eosinophils % 1.2 % (0.00-10.9); Hematocrit 32.3 VOL% (42.0-52.0); Hemoglobin 10.8 GM/DL (14.0-18.0); Immature Granulocytes % 0.8 %; Immature Granulocytes Absolute 0.08 #; Lymphocytes % 10.5 % (21.2-54.2); Mean Corpuscular HGB Conc 33.4 GM/DL (32-36); Mean Corpuscular Volume 76.9 FL (87-102); Mean Platelet Volume 10.1 FL (9.6-12.0); Monocytes # 1.3 10*3/uL (0.11-0.8); Monocytes % 13.5 % (1.7-12.7); Neutrophils % 73.7 % (38.7-73.9); Platelet Count 334 T/CUMM (130-400); Red Cell Distribution Width 15.4 % (9.3-17.3)
[2022-10-03] MEDS: BUDESONIDE 0.5 MG/2 ML NEB RESP TX SCH ×2 (07:35→19:02)
[2022-10-03 07:51] LABS: Hypochromia Slight; Lymphocytes 12 % (20-55); Microcytosis Slight; Platelet Estimate Adequate; Total Cells Counted 100
[2022-10-03] MEDS: CITALOPRAM 20 MG TABLET PO SCH (08:14)
[2022-10-03] MEDS: PANTOPRAZOLE 40 MG VIAL IV SCH (08:14)
[2022-10-03] MEDS: ASPIRIN EC 81 MG TABLET PO SCH (08:14)
[2022-10-03] MEDS ORDERED: TUBERCULIN SKIN TEST 0.1 ML SYRINGE INTRADERM ONE (09:30)
[2022-10-03] MEDS: MORPHINE 2 MG/1 ML SYRINGE IV PRN ×4 (10:50→21:53)
[2022-10-03] MEDS: metroNIDAZOLE 500 MG TABLET PO SCH (16:20)
[2022-10-03] MEDS: AMOXICILLIN 500 MG CAPSULE PO SCH (16:20)
[2022-10-03] MEDS: CLARITHROMYCIN 500 MG TABLET PO SCH (16:22)
[2022-10-03] MEDS: PANTOPRAZOLE 40 MG TABLET PO SCH (21:18)
[2022-10-04] MEDS: MORPHINE 2 MG/1 ML SYRINGE IV PRN ×4 (01:37→12:13)
[2022-10-04] MEDS: BUDESONIDE 0.5 MG/2 ML NEB RESP TX SCH (07:24)
[2022-10-04] MEDS: CLARITHROMYCIN 500 MG TABLET PO SCH (07:59)
[2022-10-04] MEDS: AMOXICILLIN 500 MG CAPSULE PO SCH (07:59)
[2022-10-04] MEDS: ASPIRIN EC 81 MG TABLET PO SCH (08:00)
[2022-10-04] MEDS: metroNIDAZOLE 500 MG TABLET PO SCH (08:00)
[2022-10-04] MEDS: CITALOPRAM 20 MG TABLET PO SCH (08:00)
[2022-10-04] MEDS: PANTOPRAZOLE 40 MG TABLET PO SCH (08:00)
[2022-10-04] MEDS ORDERED: BISACODYL 5 MG TABLET PO ONE (10:30)
[2022-10-04 11:24] VITALS: BP 147/85
== END 2022-10-04 13:30 | disposition swing bed (61) | DRG 326 ==
LOC: N.ED 23:33 → N.EDINP 09-28 03:18 → N.ICU 09-28 04:28 → N.3E 09-30 11:34
PROVIDERS: ADMIT Surgery; ATTEND Surgery

== ENCOUNTER 2022-10-07 20:10 | Inpatient (IN) ==
[2022-10-07] MEDS ORDERED: fentaNYL 100 MCG/2 ML VIAL IV STA (20:48)
[2022-10-07] MEDS ORDERED: ONDANSETRON 4 MG/2 ML VIAL IV PRN (21:00)
[2022-10-07] MEDS ORDERED: GLUCAGON 1 MG VIAL IM PRN (21:02)
[2022-10-07] MEDS ORDERED: DEXTROSE 10% 250 ML BAG IV PRN (21:14)
[2022-10-07 21:53] LABS: Basophils % 0.2 % (0.0-0.8); Eosinophils # 0.1 10*3/uL (0.0-0.87); Eosinophils % 1.3 % (0.00-10.9); Immature Granulocytes % 0.3 %; Immature Granulocytes Absolute 0.03 #; Lymphocytes # 1.8 10*3/uL (1.4-4.0); Mean Corpuscular HGB Conc 33.3 GM/DL (32-36); Mean Corpuscular Volume 77.3 FL (87-102); Mean Platelet Volume 9.2 FL (9.6-12.0); Monocytes # 0.8 10*3/uL (0.11-0.8); Monocytes % 8.5 % (1.7-12.7); Neutrophils % 69.7 % (38.7-73.9); Platelet Count 568 T/CUMM (130-400); Red Blood Count 3.88 MC/CUMM (3.8-5.5); Red Cell Distribution Width 15.5 % (9.3-17.3); White Blood Count 9.19 T/CUMM (4-12)
[2022-10-07 22:02] LABS: PT Patient Result 11.1 SECS (10.1-12.1); Partial Thromboplastin Time 28.8 SECS (23.7-32.9)
[2022-10-07 22:07] LABS: Calcium 7.7 MG/DL (8.5-10.1); Osmolality,Calculated 276.4 MOS/KG (273-304); Potassium 3.9 MMOL/L (3.5-5.1)
[2022-10-07 22:13] LABS: Eosinophils 2 % (0-10); Hypochromia 1+; Lymphocytes 20 % (20-55); Total Cells Counted 100
[2022-10-07 22:14] LABS: Platelet Estimate Adequate; Target Cells Few
[2022-10-07] MEDS ORDERED: MAGNESIUM SULF RIDER 2 GM/50 ML PREMIX IV ONE (22:57)
[2022-10-07] MEDS: DEXTROSE 5% NACL 0.45% 1,000 ML IV SCH (23:00)
[2022-10-07] MEDS ORDERED: NICOTINE 21 MG/24 HR PATCH TRANSDERM PRN (23:12)
[2022-10-08] MEDS ORDERED: PIPERACILLIN/TAZOBACTAM 3,375 MG in SODIUM CHLORIDE 0.9% 100 ML IV SCH
[2022-10-08] MEDS: ALBUTEROL/IPRATROPIUM 3 ML NEB RESP TX SCH ×4 (01:21→19:40)
[2022-10-08] MEDS: INSULIN LISPRO 100 UNIT/ML SUBCUT SCH ×4 (01:25→17:18)
[2022-10-08] MEDS: HYDROmorphone 1 MG/1 ML SYRINGE IV PRN ×6 (02:00→22:55)
[2022-10-08] MEDS: PIPERACILLIN/TAZOBACTAM 3,375 MG in SODIUM CHLORIDE 0.9% 100 ML IV SCH ×3 (03:05→21:08)
[2022-10-08 05:18] LABS: Basophils % 0.3 % (0.0-0.8); Eosinophils # 0.2 10*3/uL (0.0-0.87); Eosinophils % 1.7 % (0.00-10.9); Hematocrit 28.7 VOL% (42.0-52.0); Hemoglobin 9.5 GM/DL (14.0-18.0); Immature Granulocytes % 0.4 %; Immature Granulocytes Absolute 0.04 #; Lymphocytes % 19.7 % (21.2-54.2); Mean Corpuscular HGB Conc 33.1 GM/DL (32-36); Mean Corpuscular Volume 78.2 FL (87-102); Mean Platelet Volume 9.4 FL (9.6-12.0); Monocytes # 0.8 10*3/uL (0.11-0.8); Monocytes % 8.4 % (1.7-12.7); Neutrophils % 69.5 % (38.7-73.9); Platelet Count 572 T/CUMM (130-400); Red Blood Count 3.67 MC/CUMM (3.8-5.5); Red Cell Distribution Width 15.5 % (9.3-17.3); White Blood Count 10.05 T/CUMM (4-12)
[2022-10-08 05:41] LABS: Hypochromia 1+; Target Cells Few
[2022-10-08 05:42] LABS: Alanine Aminotransferase < 9 U/L (16-61); Albumin 1.9 G/DL (3.4-5.0); Alkaline Phosphatase 61 U/L (45-117); Aspartate Amino Transferase 10 U/L (0-37); Bilirubin,Total < 0.39 MG/DL (0.20-1.00); Blood Urea Nitrogen 3 MG/DL (7-18); Calcium 7.9 MG/DL (8.5-10.1); Carbon Dioxide 36 MMOL/L (21-32); Chloride 101 MMOL/L (98-107); Glucose 94 MG/DL (74-106); Microcytosis Slight; Osmolality,Calculated 277.3 MOS/KG (273-304); Platelet Estimate Increased; Potassium 3.8 MMOL/L (3.5-5.1); Sodium 141 MMOL/L (136-145); Total Protein 5.5 G/DL (6.4-8.2)
[2022-10-08] MEDS ORDERED: INSULIN REGULAR 100 UNIT/ML SUBCUT SCH (07:30)
[2022-10-08] MEDS ORDERED: SEVOFLURANE 1 UNIT/15 MINUTE INH ONE (07:31)
[2022-10-08] MEDS ORDERED: ONDANSETRON 4 MG/2 ML VIAL ONE (07:31)
[2022-10-08] MEDS ORDERED: LIDOCAINE 2% 5 ML VIAL ONE (07:31)
[2022-10-08] MEDS ORDERED: ROCURONIUM 50 MG/5 ML VIAL IV ONE (07:31)
[2022-10-08] MEDS ORDERED: propofoL 200 MG/20 ML VIAL IV ONE (07:31)
[2022-10-08] MEDS ORDERED: fentaNYL 100 MCG/2 ML VIAL ONE (07:31)
[2022-10-08] MEDS ORDERED: LIDOCAINE 1%/EPI INJ 20 ML VIAL ONE (07:38)
[2022-10-08] MEDS ORDERED: BUPIVACAINE MPF 0.25% 10 ML VIAL ONE (07:38)
[2022-10-08] MEDS ORDERED: TISSUE ADHESIVE 1 EACH APPLICATOR TOP ONE (07:38)
[2022-10-08] MEDS ORDERED: SUCCINYLCHOLINE 200 MG/10 ML VIAL ONE (07:41)
[2022-10-08] MEDS ORDERED: PHENYLEPHRINE 1 MG/10 ML SYRINGE IV ONE (08:30)
[2022-10-08] MEDS ORDERED: ONDANSETRON 4 MG/2 ML VIAL IV PRN (09:28)
[2022-10-08] MEDS ORDERED: MEPERIDINE 25 MG/1 ML VIAL IV PRN (09:43)
[2022-10-08] MEDS ORDERED: MEPERIDINE 25 MG/1 ML VIAL ONE (09:43)
[2022-10-08] MEDS: PANTOPRAZOLE 40 MG TABLET PO SCH (10:01)
[2022-10-08] MEDS: DEXTROSE 5% NACL 0.45% 1,000 ML IV SCH ×2 (13:24→21:16)
[2022-10-09] MEDS: INSULIN LISPRO 100 UNIT/ML SUBCUT SCH ×2 (00:13→07:04)
[2022-10-09] MEDS: ALBUTEROL/IPRATROPIUM 3 ML NEB RESP TX SCH ×2 (00:35→07:05)
[2022-10-09] MEDS: HYDROmorphone 1 MG/1 ML SYRINGE IV PRN ×2 (02:46→07:57)
[2022-10-09] MEDS: PIPERACILLIN/TAZOBACTAM 3,375 MG in SODIUM CHLORIDE 0.9% 100 ML IV SCH ×2 (04:45→11:27)
[2022-10-09] MEDS: DEXTROSE 5% NACL 0.45% 1,000 ML IV SCH (07:00)
[2022-10-09] MEDS: PANTOPRAZOLE 40 MG TABLET PO SCH (08:13)
[2022-10-09] MEDS ORDERED: ACETAMINOPHEN 325 MG TABLET PO PRN (08:50)
[2022-10-09] MEDS ORDERED: ALBUTEROL 2.5 MG/3 ML NEB RESP TX PRN (08:50)
[2022-10-09] MEDS ORDERED: FUROSEMIDE 20 MG TABLET PO SCH (09:30)
[2022-10-09] MEDS ORDERED: ASPIRIN EC 81 MG TABLET PO SCH (09:30)
[2022-10-09] MEDS ORDERED: PANTOPRAZOLE 40 MG TABLET PO SCH (09:30)
[2022-10-09] MEDS ORDERED: POTASSIUM CHLORIDE 20 MEQ TABLET PO SCH (09:30)
[2022-10-09] MEDS ORDERED: VERAPAMIL SR 120 MG TABLET PO SCH (09:30)
[2022-10-09] MEDS ORDERED: CITALOPRAM 20 MG TABLET PO SCH (09:30)
[2022-10-09] MEDS ORDERED: BUDESONIDE 0.5 MG/2 ML NEB RESP TX SCH (10:00)
[2022-10-09 11:31] VITALS: BP 139/69
[2022-10-09] MEDS ORDERED: metroNIDAZOLE 500 MG TABLET PO SCH (17:00)
[2022-10-09] MEDS ORDERED: AMOXICILLIN 500 MG CAPSULE PO SCH (17:00)
[2022-10-09] MEDS ORDERED: CLARITHROMYCIN 500 MG TABLET PO SCH (17:00)
[2022-10-09] MEDS ORDERED: VENLAFAXINE 25 MG PO SCH (21:00)
== END 2022-10-09 12:11 | DRG 908 ==
LOC: N.ED 20:10 → N.EDINP 20:10 → N.3E 22:52
PROVIDERS: ADMIT Surgery; ATTEND Surgery